=== PATIENT | female | born 1985 | race Caucasian/White ===

== ENCOUNTER 2017-02-02 20:49 | Emergency (ER) | payer OTHER ==
--- NOTE | 2017-02-02 21:17 | ED Physician Documentation ---
PD HPI URI - Stated complaint Stated Complaint: SORE THROAT - Chief complaint Chief Complaint: Heent - History obtained from History obtained from: Patient - History of Present Illness Timing - onset: Last night Timing duration: Days (1) Associated symptoms: Chills, Sore throat, Swollen nodes. 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 - Present Medications Home Medications: Ambulatory Orders Medication Instructions Recorded Confirmed Azithromycin [Zithromax] 250 mg PO DAILY #4 tablet 02/02/17 - Allergies Allergies/Adverse Reactions: Allergies Allergy/AdvReac Type Severity Reaction Status Date / Time amoxicillin AdvReac Emesis Verified 02/02/17 20:51 - Social History Does the pt smoke?: No Smoking Status: Never smoker Does the pt drink ETOH?: No Does the pt have substance abuse?: No - Immunizations Immunizations are current?: Yes PD ED PE NORMAL - Vitals Vital signs reviewed: Yes - General General: Alert and oriented X 3, No acute distress, Well developed/nourished - HEENT HEENT: Ears normal, Moist mucous membranes. No: Pharynx benign (enlarged tonsils without peritonsillar swelling, but marked exudative coating on tonsils. ANterior adenopathy present and tender. ) - Neck Neck: Supple, no meningeal sign - Cardiac Cardiac: RRR, No murmur - Respiratory Respiratory: Clear bilaterally Results - Vitals Vitals: Oxygen O2 Source Room air - Labs Labs: Microbiology 02/02/17 21:00 Group A Strep Throat Culture - Final Throat MIXED OROPHARYNGEAL ANTHONY PRESENT. NO BETA STREP PRESENT IN CULTURE. Laboratory Tests 02/02/17 21:00 Group A Strep Rapid Negative PD MEDICAL DECISION MAKING - ED course Complexity details: considered differential (has had recurrent strep and exam is 4/4 centor. WIll treat pending culture. ), d/w patient Departure - Departure Disposition: Home, Self Care Clinical Impression: Exudative pharyngitis Condition: Stable Record reviewed to determine appropriate education?: Yes Instructions: ED Strep Pharyngitis Poss Follow-Up: TRUD[facility] Mar [Provider Group] Prescriptions: Azithromycin [Zithromax] 250 mg PO DAILY #4 tablet Comments: This looks like strep tonsillitis given your history of recurrent strep, we will treat it that way with the azithromycin and a dose tonight of dexamethasone. Use Tylenol or ibuprofen as needed for fever and pain. Rinse and gargle with warm water a few times a day. Throat lozenges or tea and honey are good for sore throat as well. Recheck if not improved over the next few days. The rapid test was negative but the throat culture will be more accurate and will result in 2-3 days. Discharge Date/Time: 02/02/17 22:01
[2017-02-02 21:30] LABS: RAPID STREP SCREEN REAGENT QC YELLOW (YELLOW)
[2017-02-02] MEDS ORDERED: AZITHROMYCIN 250 MG TABLET PO STA (21:44)
[2017-02-02] MEDS ORDERED: DEXAMETHASONE 10 MG/ML VIAL PO STA (21:44)
[2017-02-02] MEDS ORDERED: ACETAMINOPHEN 325 MG TABLET PO STA (21:44)
[2017-02-02] MEDS ORDERED: DEXAMETHASONE 10 MG/ML VIAL ONE (21:57)
[2017-02-02] MEDS ORDERED: CHERRY SYRUP 10 ML UDC PO ONE (21:57)
[2017-02-02] MEDS ORDERED: AZITHROMYCIN 250 MG TABLET PO ONE ×2 (21:57→21:58)
[2017-02-02] MEDS ORDERED: ACETAMINOPHEN 325 MG SUPP PR ONE (21:58)
[2017-02-02] MEDS ORDERED: ACETAMINOPHEN 325 MG TABLET PO ONE (21:59)
[2017-02-02 22:03] VITALS: BP 120/83
== END 2017-02-02 22:01 | disposition home or self-care (01) ==
LOC: ED 20:49
DX: J02.9 Acute pharyngitis, unspecified (principal)
CPT/HCPCS: 87070; 87430; 99283; A9270